=== PATIENT | female | born 1960 ===

== ENCOUNTER 2016-10-02 13:24 | Emergency (ER) | payer MEDICAID ==
[2016-10-02 13:29] VITALS: TEMP 98.5; O2SAT 98; BMI 24.3
--- NOTE | 2016-10-02 14:14 | C.PDOC ---
History Of Present Illness 56 year old female presents to the ED for evaluation of wound over the left breast following a I&D performed on 09/28/[address] Maher. Patient states she was last seen on 10/01/16 in ED for wound check and wound was repacked. AT time, Pt was recommended to return to ED today for next wound check. She notes wound appears better, decreased pain, denies significant wound discharges, and admits to taking antibiotics. Patient denies fever, chills, increase wound pain or discharge, swelling or any other active complaints. Time Seen by Provider: 10/02/16 13:37 Chief Complaint (Nursing): Wound Check History Per: Patient, Family History/Exam Limitations: no limitations Current Symptoms Are (Timing): Better Location Of Injury: Left: Chest (left breast wound from I&D ) Quality Of Symptoms: denies: Painful, Swollen, Draining Recent travel outside of the [place]: No Additional History Per: Prior Records Past Medical History Reviewed: Historical Data, Nursing Documentation, Vital Signs Vital Signs: Last Vital Signs Temp 98.5 F 10/02/16 13:29 Pulse 78 10/02/16 14:39 Resp 20 10/02/16 14:39 BP 130/78 10/02/16 14:39 Pulse Ox 98 10/02/16 14:43 - Medical History PMH: Diabetes (NIDDM), HTN Surgical History: Family History: States: Unknown Family Hx - Social History Hx Alcohol Use: No Hx Substance Use: No Review Of Systems Constitutional: Negative for: Fever, Chills Skin: Positive for: Other (wound check over left breast ) Physical Exam - Physical Exam Appears: Well, Non-toxic, No Acute Distress Skin: Normal Color, Warm, Other ((+) open wound just above Left nipple areola 4 cm length, no packing noted inside wound. Appears clean, dry,intact, no discharges. Mild inderation palpated. No flactulance. No erythema or proximal streaking noted) Chest: Symmetrical Neurological/Psych: Oriented x3, Normal Speech ED Course And Treatment O2 Sat by Pulse Oximetry: 98 (room air ) Progress Note: residential designer Bakari was called for consult. Pt was evaluated by surgical pathologist and wound was re-packed. Pt was advised directly by surgical pathologist for further F/U on 10/04/16 with outpt. Cont abx tx. Return to ED if any worsening or new changes. Disposition Counseled Patient/Family Regarding: Diagnosis, Need For Followup - Disposition Referrals: Bertram Salazar MD [Staff Provider] - Disposition: HOME/ ROUTINE Disposition Time: 14:12 Condition: STABLE Additional Instructions: Follow up with Surgery on Monday10/04/16 in office for further wound evaluation and treatment Continue antibiotic as initiated before after surgery. Instructions: Breast Abscess Drainage (ED) Print Language: ROMANSH - Clinical Impression Clinical Impression: Change of dressing, Breast abscess - Scribe Statement The provider has reviewed the documentation as recorded by the Scribe Michelle Huynh All medical record entries made by the Traeibe were at my direction and personally dictated by me. I have reviewed the chart and agree that the record accurately reflects my personal performance of the history, physical exam, medical decision making, and the department course for this patient. I have also personally directed, reviewed, and agree with the discharge instructions and disposition.
[2016-10-02 14:40] VITALS: BP 130/78; PULSE 78; RESP 20
== END 2016-10-02 14:40 | disposition home or self-care (01) ==
LOC: C.ER 13:24
DX: Z48.01 Encounter for change or removal of surgical wound dressing (principal)